=== PATIENT | female | born 1975 | race Asian ===

== ENCOUNTER 2020-05-18 14:55 | Outpatient (CLI) | payer BC, SELFPAY ==
--- NOTE | ~2020-05-18 | MM_ITS ---
EXAMINATION: MM screening lobo BI w chuy HISTORY: Screening mammogram TECHNIQUE: Craniocaudal and mediolateral oblique 3-D tomosynthesis images were obtained and synthetic 2-D images were generated. CAD analysis was submitted and interpreted. COMPARISON: 08/01/2016 BREAST PARENCHYMAL COMPOSITION: There are scattered areas of fibroglandular density. FINDINGS: There is no evidence of suspicious mass, calcification, or architectural distortion to sugg est malignancy in either breast. There has been no suspicious interval change. IMPRESSION: 1. No mammographic evidence of malignancy. 2. Recommend routine screening mammography in one year. BI-RADS Category 1: Negative Reviewed, dictated and finalized at location A.
== END 2020-05-18 14:56 | disposition home or self-care (01) ==
LOC: ANHIMG 15:02
PROVIDERS: PCP Emergency Medicine; Visit Provider Emergency Medicine
DX: Z12.31 Encounter for screening mammogram for malignant neoplasm of breast (principal)
CPT/HCPCS: 77063; 77067

== ENCOUNTER 2020-05-30 07:55 | Outpatient (CLI) | payer BC, SELFPAY ==
--- NOTE | ~2020-05-30 | US_ITS ---
EXAMINATION: US abdomen complete DATE: 05/30/2020 08:42 INDICATION: Liver disease TECHNIQUE: Multiple grayscale and Doppler ultrasound images of the abdomen were obtained. COMPARISON: None available FINDINGS: The head and body of the pancreas are normal. The pancreatic tail is obscured by bowel gas. The liver is normal with normal echogenicity and echotexture. No surface nodularity. Normal hepatope aleja flow in the main portal vein. The gallbladder is normal with no abnormal wall thickening, pericho lecystic fluid or stones. The normal common bile duct measures 2 mm. There was no sonographic Swan sign. The visualized portions of the aorta and inferior vena cava are normal. The right kidney measures 11.1 x 3.9 x 4.2 cm. The left kidney measures 10.1 x 6.1 x 4.5 cm. The kidn eys demonstrate normal parenchymal echogenicity. There is no hydronephrosis. The spleen is normal in appearance and measures 8.2 cm. IMPRESSION: 1. No sonographic correlate for the patient's symptoms. Reviewed, dictated and finalized at location A.
== END 2020-05-30 07:56 | disposition home or self-care (01) ==
PROVIDERS: PCP Emergency Medicine; Visit Provider Emergency Medicine
DX: K76.9 Liver disease, unspecified (principal)
CPT/HCPCS: 76700

== ENCOUNTER 2021-02-17 13:20 | Outpatient (CLI) | payer OTHER, SELFPAY ==
--- NOTE | ~2021-02-17 | US_ITS ---
EXAMINATION: US pelvic complete w TV DATE: 02/17/2021 13:56 INDICATION: Pelvic pain TECHNIQUE: Multiple transabdominal and endovaginal sonographic images of the pelvis were obtained. COMPARISON: None. FINDINGS: The uterus measures 8.2 x 6.6 x 4.9 cm. The endometrial complex measures 7 mm. And IUD appe ars to be in expected position. The right ovary is not visualized however no right adnexal abnormalit y is seen. The left ovary measures 3.3 x 3.1 x 2.7 cm and contains a 2.6 cm cyst. There is normal vas cular flow in the left ovary. There is no free fluid in the pelvis. IMPRESSION: 1. No sonographic correlate for the patient's symptoms. Reviewed, dictated and finalized at location F. TIC PERFORMER
== END 2021-02-17 13:21 | disposition home or self-care (01) ==
LOC: ANHIMG 13:28
PROVIDERS: PCP Emergency Medicine; Visit Provider Emergency Medicine
DX: R10.2 Pelvic and perineal pain (principal)
CPT/HCPCS: 76830; 76856

== ENCOUNTER 2021-06-30 09:00 | Outpatient (CLI) | payer OTHER, SELFPAY ==
--- NOTE | ~2021-06-30 | MM_ITS ---
EXAMINATION: MM screening [facility] BI w chuy HISTORY: Screening TECHNIQUE: Craniocaudal and mediolateral oblique 3-D tomosynthesis images were obtained and synthetic 2-D images were generated. CAD analysis was submitted and interpreted. COMPARISON: Comparison to multiple prior studies sequentially, with oldest reviewed study dated 05/18. BREAST PARENCHYMAL COMPOSITION: Breast composed of scattered areas of fibroglandular density FINDINGS: There is no evidence of suspicious mass, calcification, or architectural distortion to sugg est malignancy in either breast. There has been no suspicious interval change. IMPRESSION: 1. No mammographic evidence of malignancy. 2. Recommend routine screening mammography in one year. BI-RADS Category 1: Negative Reviewed, dictated and finalized at location A.
== END 2021-06-30 09:01 | disposition home or self-care (01) ==
LOC: ANHIMG 09:04
PROVIDERS: PCP Emergency Medicine; Visit Provider Emergency Medicine
DX: Z12.31 Encounter for screening mammogram for malignant neoplasm of breast (principal)
CPT/HCPCS: 77063; 77067

== ENCOUNTER 2022-11-07 01:21 | Day surgery (SDC) | payer OTHER, SELFPAY ==
[2022-10-28 16:21] VITALS: BMI 26.5
[2022-11-07] MEDS: LACTATED RINGERS 1,000 ML 150 ML IV CONT (09:40)
[2022-11-07 09:43] VITALS: BP 157/94; PULSE 65; RESP 18; TEMP 36.3; O2SAT 100
--- NOTE | 2022-11-07 09:44 | SUR.PREOP ---
[facility] chain person Bushra #[id number] utilized to get patient ready for procedure.
--- NOTE | 2022-11-07 10:34 | WPDANESEPPF ---
Anes - Initial Pre Proc Eval Procedure: Operation Date: 11/07/22 11:00 Proposed Procedures p Screening Colonoscopy - Tyson Schofield MD Date/Time: 11/07/22 10:34 Surgeon: Tyson Schofield MD Pre Op Diagnosis: neoplasm screening Patient Data Age: 46 Gender: F Height: 1.6 m Weight: 65.8 kg Last Vital Signs Temp 97.4 F L 11/07/22 09:43 Pulse 65 11/07/22 09:43 Resp 18 11/07/22 09:43 BP 157/94 H 11/07/22 09:43 Pulse Ox 100 11/07/22 09:43 O2 Del Method Room Air 11/07/22 09:43 Allergies Allergy/AdvReac Type Severity Reaction Status Date / Time No Known Allergies Allergy Mild Unverified 11/07/22 09:36 Home Medications Medication Instructions Recorded Confirmed Type amlodipine 5 mg tablet 5 mg PO DAILY 11/07/22 11/07/22 History Patient hx anesthesia problems: none Family hx anesthesia problems: none Results Review: All pre-operative results and documents have been reviewed as part of the pre-operative evaluation. [facility] Social History Social History Smoking status: Never smoker Substance use: never Substance use type: does not use Living arrangements: with family Spiritual care concerns: No Anes - Eval Final PreProcedure Day of Procedure 11/07/22 10:34 Patient weight: normal Heart: regular rate and rhythm Lungs: clear to auscultation Airway: Mallampati scale class II Neurological: alert and oriented Last oral intake: >/= 8 hours ASA classification: II Emergent: no Anesthetic plan: proceed Anesthesia type and monitoring: general GIVS and standard monitoring Results Review: All pre-operative results and documents have been reviewed as part of the pre-operative evaluation. Informed Consent: The patient's anesthetic plan and its attendant risks and benefits were discussed with the patient/family/POA. Questions were solicited and answers provided to the satisfaction of the patient/family/POA.
--- NOTE | 2022-11-07 10:42 | P.HP_ITS ---
History of Present Illness History of Present Illness Consent: Risks, benefits, and alternatives have been discussed and questions answered. Patient agrees to proceed with procedure. Chief complaint: neoplasm screening Narrative: Maricruz Peter is a 46 year old female here for first screening colonoscopy Review of Systems Constitutional: Constitutional: Denies headache(s) and Denies weakness Eyes: Eyes: Denies blurry vision ENT: Reports Normal hearing present, Denies headache(s) and Denies neck pain Cardiovascular: Cardiovascular: Denies chest pain and Denies dyspnea Respiratory: Respiratory: Denies dyspnea Gastrointestinal: Gastrointestinal: Reports no additional gastrointestinal complaints Genitourinary: Genitourinary: Denies dysuria Musculoskeletal: Musculoskeletal: Denies neck pain Integumentary/Breasts: Skin/Breast: Denies dry skin Neurologic: Reports Normal hearing present, Denies headache(s) and Denies w eakness Psychiatric: Psychiatric: Denies anxiety Endocrine: Endocrine: Denies change in body appearance Hematologic/Lymphatic: Hematologic/Lymphatic: Denies easy bleeding Allergic/Immunologic: Allergic/Immunologic: Denies urticaria PMFSH Past Medical History Medical History (Updated 11/07/22 @ 10:43 by Tyson Schofield MD) Colon cancer screening Social History Social History Smoking status: Never smoker Substance use: never Substance use type: does not use Living arrangements: with family Spiritual care concerns: No Meds Home Medications and Allergies Home Medications Medication Instructions Recorded Confirmed Type amlodipine 5 mg tablet 5 mg PO DAILY 11/07/22 11/07/22 History Allergies Allergy/AdvReac Type Severity Reaction Status Date / Time No Known Allergies Allergy Mild Unverified 11/07/22 09:36 Vital Signs Vital Signs - 24 hr 11/07/22 09:43 Temperature 97.4 F L Pulse Rate 65 Respiratory Rate 18 Blood Pressure 157/94 H Pulse Oximetry 100 Oxygen Delivery Room Air Exam Const: General: comfortable and no acute distress HENMT: Face/Nose/Sinus: Normal nares present Eyes: General: appearance normal, both eyes and all related structures Neck: Neck: no JVD Resp: Auscultation: clear to auscultation bilaterally Cardio: Rate: regular rate Rhythm: regular rhythm GI: Inspection: non-distended GI Palp: Yes Soft to palpation Skin: General skin exam: normal color Neuro: General: gait normal Speech: normal speech Extrem: General: normal to inspection Psych: Mental Status: mental status grossly normal Assessment and Plan Assessment and plan (1) Colon cancer screening: Code(s): Z12.11 - Encounter for screening for malignant neoplasm of colon Status: Acute Assessment and Plan: colonoscopy
[2022-11-07 11:03] VITALS: BP 108/74; PULSE 69; RESP 22; O2SAT 97
[2022-11-07 11:13] VITALS: BP 139/96; PULSE 56; RESP 18; O2SAT 100
[2022-11-07 11:23] VITALS: BP 156/98; PULSE 61; RESP 20; O2SAT 100
--- NOTE | 2022-11-07 11:27 | SUR.PHASEII ---
Post op instructions and results reviewed via goldsmith apprentice(Mandarin) post operatively. All questions answered.
== END 2022-11-07 11:44 | disposition home or self-care (01) ==
PROVIDERS: PCP Emergency Medicine; Visit Provider Internal Medicine Gastroenterology
PROC: 0DJD8ZZ Inspection of Lower Intestinal Tract, Via Natural or Artificial Opening Endoscopic (ICD-10-PCS; CPT 45378; principal; 2022-11-07 11:00)
DX: Z12.11 Encounter for screening for malignant neoplasm of colon (principal)
CPT/HCPCS: 45378; J2001; J2704; J7120

== ENCOUNTER 2023-01-16 14:55 | Outpatient (CLI) | payer OTHER, SELFPAY ==
--- NOTE | ~2023-01-16 | MM_ITS ---
EXAMINATION: MM screening lobo BI w chuy HISTORY: Screening mammogram TECHNIQUE: Craniocaudal and mediolateral oblique 3-D tomosynthesis images were obtained and synthetic 2-D images were generated. CAD analysis was submitted and interpreted. COMPARISON: 06/30/2021, 05/18/2020, 08/01/2016 bilateral screening mammogram examinations BREAST PARENCHYMAL COMPOSITION: There are scattered areas of fibroglandular density. FINDINGS: There is no evidence of suspicious mass, calcification, or architectural distortion to sugg est malignancy in either breast. There has been no suspicious interval change. IMPRESSION: 1. No mammographic evidence of malignancy. 2. Recommend routine screening mammography in one year. BI-RADS Category 1: Negative Reviewed, dictated and finalized at location A. OR MAKER
== END 2023-01-16 14:56 | disposition home or self-care (01) ==
LOC: ANHIMG 14:58
PROVIDERS: PCP Emergency Medicine; Visit Provider Emergency Medicine
DX: Z12.31 Encounter for screening mammogram for malignant neoplasm of breast (principal)
CPT/HCPCS: 77063; 77067

== ENCOUNTER 2024-04-08 14:04 | Outpatient (CLI) | payer OTHER, SELFPAY ==
--- NOTE | ~2024-04-08 | DEXA_ITS ---
Bone Density Report Name: YASMANY BLACK Age: 48 Sex: Female Ethnicity: White Date of : 1975 Indication: postmenopausal; height loss; Referring Provider: TIMOTHY COURTNEY Study: Bone densitometry was performed. Exam Date: April 08, 2024 Accession number: [id number] Bone Density: Region BMD T-score Z-score Classification AP Spine(L1-L4) 0.881 -1.5 -0.9 Osteopenia Femoral Neck (Left) 0.720 -1.2 -0.5 Osteopenia Total Hip (Left) 0.966 0.2 0.6 Normal Femoral Neck (Right) 0.778 -0.6 0.0 Normal Total Hip (Right) 0.917 -0.2 0.2 Normal Total Hip Mean 0.942 0.0 0.4 Normal World Health Organization criteria for BMD impression classify patients as: Normal (T-score at or above -1.0), Osteopenia (T-score between -1.0 and -2.5), or Osteoporosis (T-score at or below -2.5). 10-year Fracture Risk(1): Major Osteoporotic Fracture 3.7% Hip Fracture 0.2% Reported Risk Factors: [place] (), Neck BMD=0.720, BMI=26.3 (1) FRAX(R) Version 3.08. Fracture probability calculated for an untreated patient. Fracture probability may be lower if the patient has received treatment. Clinical Information Provided by Patient: Patient maximum height was 63 Does not regularly consume dairy products Drinks caffeinated beverages Onset of menses at age 12 Number of children 3 Missed period for more than 6 months in a row Impression: The patient has low bone mass, based on the Total Spine T-score. The patient has an estimated ten-year risk of hip fracture of 0.2% and an estimated ten-year risk of major fracture of 3.7%, based on the WHO FRAX algorithm. Discussion: BONE DENSITY IS LOW AT ONE OR MORE SKELETAL SITES. This patient's lowest T-score is low at one or more skeletal sites. It meets the World Health Organization's (WHO) criteria for ?low bone mass? (T-score between -1.0 and -2.5). The patient's 10-year risk of fracture as calculated by FRAX is less than the threshold where pharmacological therapy is recommended by the National Osteoporosis Foundation (NOF). However, all treatment decisions require clinical judgment and consideration of individual patient factors, including patient preferences, comorbidities, previous drug use, risk factors not captured in the FRAX model (e.g., frailty, falls, vitamin D deficiency, increased bone turnover, interval significant decline in bone density) and possible under or overestimation of fracture risk by FRAX. The patient should follow a healthful lifestyle (good nutrition with adequate calcium and vitamin D, and appropriate weight-bearing exercise). Follow-Up: Consider repeating this study in 2 to 3 years to reassess this patient's status, or sooner if there is some new clinical indication. Reported by: KRISTINE on 04/08/2024 3:15:00 PM. Reviewed, dictated and finalized at location A. [facility]
--- OUTSIDE RECORDS SUMMARY | 2024-04-08 16:43 | XMS_ITS | Continuity of Care Document ---
Author Organization [facility] Address [id number] Phone Care Team Providers Care Marketing Liaison Name Role Phone Unavailable Unavailable Unavailable Allergies, Adverse Reactions, Alerts Substance Reaction Status Criticality BLOOD SUGAR DIAGNOSTIC Active No In formation BLOOD-GLUCOSE METER Active No Infor mation WARNIN allergy(ies) could not be collected because the type is not supported. Please contact the source practice for further details. Medications Medication Instructions Dosage Effective Dates (start - stop) Status Comments Benzonatate 100 mg Cap - Act chace Alesse-28 0.1 mg-20 mcg Tab - Active Advance Directives Directive Yes / No Effective Date File Name No Information Encounters Encounter Description Practice Location Reason(s) For Visit Diagnoses Date Provider Providers Copied on Encounter [facility], [address], , [id number], [place] tel:[phone] Noteworthy Legacy [facility] Laboratory examinationLabo ratory examinationAcut e upper respiratory infections of unspecified sitePain in jointRoutine follow-upOther general counseling and advice on contraceptive management 201 1 No Information Family History Family Member Type Diagnosis Age At Onset No Information Immunizations Vaccine Date Status Comments H1N1 INFLUENZA A (SWINE FLU) VACCINE PF 0.5 mL INJECTION administered Source: Sour ce Unspecified Payers Payer name Insurance type Covered libertarian ID Authoriza tion(s) No Information Social History Type Description Quantity Date Captured Comments Sex Female Smoking Status No Information Vital Signs Date / Time: Height Weight BMI Pulse Rate Blood Pressure Temperature Respiratory Rate Body Surface Area Head Circumference Head Circ. Percentile Wt./Jey. Percentile BMI percentile Pulse Ox Inhaled Ox 10:01 AM 139.70 cm 62.100 kg 31.8 0 kg/m eter (2) 138/100 mm[Hg] 10:29 AM 69.100 kg 84 /min 158/109 mm[Hg] 98.30 F 18 /min Chief Complaint And Reason For Visit No Information Reason For Referral Reason For Referral No Information History Of Present Illness Encounter Date Complaint History Of Prese nt Illness No Information Functional Status Date Functional Assessmen t No Information Instructions Date Instruction Additional Infor mation No Information Assessments Type Assessment Date No Information Patient Care Teams Name Effective Dates (start - stop) Status Members No Information
--- OUTSIDE RECORDS SUMMARY | 2024-04-08 16:44 | XMS_ITS | Referral Summary ---
Author Organization [facility] Address [address] [place] [address] Care Team Providers Care Handyperson Name Role Phone Saul Andrew MD Primary Care Provider [phone] Source Comments [facility]non-owned Affiliates and Associated Physician Practices is amultiple site organization consisting of ambulatory clinics and hospital sitesin [place], [place], [place] and [place]. This disclosure is being madepursuant to the Care Everywhere program and may not contain all information available regarding this patient. Last updated 11/10/17.[employer] [facility] Allergies No known active allergies Medications * Be aware that medications may not be up to date on this document. Alwaysverify current medications with the patient. Medication Sig Dispensed Refills Start Date End Date Status irbesartan-hydroCHLORO thiazide (AVALIDE) 150-12.5 MG tablet Take 1 tablet by mouth once daily Active Active Problems Problem Noted Date Diagnosed Date Hepatitis B virus infection 05/03/2021 Overview (11/13/2021): 11/12/21 Fibroscan CAP 307, LSM 6.8 kPa Social History Tobacco Use Types Packs/Day Years Used Date Smoking Tobacco: Never Smokeless Tobacco: Never Alcohol Use Standard Drinks/Week Comments Never 0 (1 standard drink = 0.6 oz pur e alcohol) Sex and Gender Information Value Date Recorded Sex Assigned at Not on file Gender Identity Not on file Sexual Orientation Not on file Last Filed Vital Signs Vital Sign Reading Time Taken Comments Blood Pressure 174/106 11/12/2021 10:41 AM CDT Pulse 65 11/12/2021 10:41 AM CDT Temperature 36.6 C (97.8 F) 11/12/2021 10:41 AM CDT Respiratory Rate 18 11/12/2021 10:41 AM CDT Oxygen Saturation 100% 11/12/2021 10:41 AM CDT Inhaled Oxygen Concentration - - Weight 65.8 kg (145 lb) 11/12/2021 10:41 AM CDT Height 157.5 cm (5' 2 ) 05/03/2021 1:39 PM CDT Body Mass Index 26.52 05/03/2021 1:39 PM CDT Plan of Treatment Not on file Goals Goal Patient Goal Type Associated Problems Recent Progress Patient-Stated? Author Medication Management General On track( 022 10:49 AM CDT) No Ilene Ram RN Note: Expected end date: Ongoing Interventions: Take all medications as prescribed Let your doctor know right away about any changes in your medications Make sure to request a refill of your medication at least one week prior to your last dose Procedures Procedure Name Priority Date/Time Associated Diagnosis Comments COMPREHENSIVE METABOLIC PANEL Routine 05/03/2021 3:03 PM CDT Liver problem HEPATITIS C ANTIBODY Routine 05/03/2021 3:03 PM CDT Liver problem from Last 3 Months or Most Recently Relevant to Health Maintenance Results * (ABNORMAL) COMPREHENSIVE METABOLIC PANEL (05/03/2021 3:03 PM CDT) BUN 8 7 - 26 mg/dL 05/03/2021 3:48 PM T [facility] Creatinine 0.65 0.56 - 0.96 mg/dL 05/03/2021 3:48 PM T [facility] Sodium 140 136 - 145 mmol/L 05/03/2021 3:48 PM T [facility] Potassium 3.1(L) 3.5 - 4.5 mmol/L 05/03/2021 3:48 PM [facility] Chloride 99 98 - 107 mmol/L 05/03/2021 3:48 PM T [facility] CO2 29 22 - 29 mmol/L 05/03/2021 3:48 PM T [facility] Glucose 98 70 - 115 mg/dL 05/03/2021 3:48 PM [facility] Calcium 9.7 8.4 - 10.2 mg/dL 05/03/2021 3:48 PM [facility] Protein Total 8.8(H) 6.0 - 8.3 g/dL 05/03/2021 3:48 PM [facility] Albumin 4.4 3.4 - 5.0 g/dL 05/03/2021 3:48 PM [facility] Bilirubin Total 0.7 0.2 - 1.2 mg/dL 05/03/2021 3:48 PM [facility] Alkaline Phosphatase 99 40 - 150 U/L 05/03/2021 3:48 PM [facility] ALT 27 5 - 55 U/L 05/03/2021 3:48 PM [facility] AST 20 5 - 34 U/L 05/03/2021 3:48 PM [facility] Anion Gap 15 8 - 18 05/03/2021 3:48 PM [facility] BUN/Creatinine Ratio 12 7 - 23 05/03/2021 3:48 PM [facility] Osmolality Calculated 288 270 - 300 mOsm/kg 05/03/2021 3:48 PM [facility] Albumin/Globulin Ratio 1.0(L) 1.1 - 2.3 05/03/2021 3:48 PM [facility] eGFR by CKD-EPI >90 >=90 mL/min/1.7 3 m2 05/03/2021 3:48 PM [facility] Blood BLOOD SPECIMEN / Unknown Lab Venipuncture / Unknown 05/03/2021 3:03 PM CDT 05/03/2021 3:17 PM CDT Ivette Gray [facility] - CHEMI STRY ORDERABLES [facility] [address] [place] [id number], [facility] [phone] * HEPATITIS C ANTIBODY (05/03/2021 3:03 PM CDT) Hepatitis C Antibody Non-react chace Non-reac tive 05/03/2021 4:15 PM CDT [facility] Comment:Hepatitis C Antibody screen indicates no serologic evidence of past or current infection with Hepatitis C Virus. Patients with unexplained liver disease who are immunocompromised or suspected of having acute Hepatitis C infection may benefit from Nucleic Acid Test (XUAN) for Hepatitis C Viral RNA to confirm Hepatitis C status. Blood BLOOD SPECIMEN / Unknown Lab Venipuncture / Unknown 05/03/2021 3:03 PM CDT 05/03/2021 3:15 PM CDT Ivette Gray [facility] - CHEMI STRY ORDERABLES [facility] [address] [place] [address], [facility] [phone] from Last 3 Months or Most Recently Relevant to Health Maintenance Care Teams Handyperson Relationship Specialty Start Date End Date Saul Andrew MD [address] [place] [address] PCP - General 01/03/22
--- OUTSIDE RECORDS SUMMARY | 2024-04-08 16:44 | XMS_ITS | Data Portability ---
Author Organization [facility] [place] Address [address] [place] [place] [address] Assessment Encounter Date Assessment Date Assessment LastModified by Organization Details LastModified Time 06/25/2021 06/25/2021 Annual gynecological exam performed. Patient will come back in a year unless there are new symptoms. Not available 06/25/2021 10:20:51 Plan of Treatment Reminders Order Date Submit Date Provider Last Modified By Organization Details Last Modified Time Details Appointments None recorded. Lab test, [facility] [place], [address], [address], [place], [address], 10:58:59 Referral gastroenter ologist referral - Referring this patient for a Screening Colonoscopy *Please call this patient to set up an appointment *Attached to this referral are the patients demographic s and most recent office visit note.If you have any questions or require further information , please contact me at [phone].Thank you,Chanell, Referral's 2021 022 [facility], [address], [id number], [place], [address], 3 05:01:34 Procedures None recorded. Surgeries None recorded. Imaging None recorded. Medication Orders None recorded. Patient TargetsNo targets recorded. Patient InstructionsNo instructions recorded. 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 for malignant neoplasm of colon Screening Colonoscopy Referring this patient for a Screening Colonoscopy*Please call this patient to set up an appointment*Attached to this referral are the patients demographics and most recent office visit note.If you have any questions or require further information, please contact me at [phone].Thank you,Chanell, Referral's Referring Physician: Yvonne Mar, CHANNEL DIRECTOR, Encounter Date: 06/25/2021 Results Created Date Observation Date Name Description Value Unit Range Abnormal Flag Note LastModifiedBy Organization Detail LastModifiedTime 06/26/19 22 06/25/2021 IMAGE GUIDE D PAP AND HPV REGAR DLESS image guided Pap, HPV regardless of Pap result SEE RESULT S BELOW CASE REPOR T: Cytol ogy Gynec ologi ceci Repor t Case: [id number] 20 Autho bc wyatt Provi orquidea: Adrian Michelle Colle cted: 06/25 1338 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 Cindy moreira evonne d by Maureen Ordaz ret, CT on 2021 at 12:42 PM ----- ----- ----- ----- ----- ----- ----- ----- ----- ----- ----- ----- ----- ----- ----- ----- ----- ---- HPV RESUL TS: HPV mRNA E6/E7 : No HPV mRNA Detec roby NOTE: This high risk HPV mRNA assay detec ts fourt een high- risk HPV types (16, 18, 31, 33, 35, 39, 45, 51, 52, 56, 58, 59, 66, 68) witho ut diffe renti ation . COMME NT: Note: This speci men was revie wed by a Cytot echno logis t and/o r Patho logis t (as indic ated in this repor t) after evalu ation using the Thinp rep Imagi ng Syste m. CLINI CECI INFOR MATIO N: Menst rual Statu s: LMP (if appli cable ): Clini ceci Histo ry/Pr eviou s Pap: Type of Neopl desiree (if appli cable ): Signi fican t Clini ceci Findi ngs: Other Histo ry: Hormo marcelina (if appli cable ): PAP EDUCA SAMARA L NOTE: The Pap Test is a scree alexander test with an inher ent false negat chace rate. Liqui d-bas ed sampl ing may decre ase, but will not elimi cally, false negat chace resul ts. A negat chace resul t does not precl ude the prese nce and/o r devel opmen t of disea se, since the prese nce of abnor mal cells in the sampl e depen ds on the locat ion of the lesio n and sampl ing techn ique. Joce nued regul ar scree alexander is the best metho d of cance r preve ntion . If repor roby cytol ogic findi ng do not corre late with physi ceci and/o r histo rical findi ngs, furth er inves tigat ion is recom omid d, as clini sandra ruiz nted. Not Available [facility] (Lab) [address], [place], [address], 07/02/2021 13:44:44 06/26/19 22 06/25/2021 pregn huseyin test, urine HCG negati ve Not Available [place] [address], [place], [address], 06/25/2021 10:57:27 Result Notes None recorded. Problems Name Problem SNOMED Code Status Onset Date Resolution Date Notes Provider Name and Address Organization Details Recorded Time Pregnanc y test positive 480770093 Completed 201006/24/2021 examinati on or test, positive result;Re corded Elsewhere : No Locati on: [facility] So urce: EHR Chron ic: N Practic e ID: 0001 Bill able Time: 01:00:00 PM Sonia amor [facility] 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 2 16:17:47 Postpart um care Completed 201106/24/2021 Routine postpartu m follow-up ;Recorded Elsewhere : No Locati on: [facility] So urce: EHR Chron ic: N Practic e ID: 0001 Bill able Time: 12:00:00 PM Sonia Infante [facility] 2 16:17:47 Pregnanc y test negative [id number] Completed 201106/24/2021 examinati on or test, negative result;Re corded Elsewhere : No Locati on: [facility] So urce: EHR Chron ic: N Practic e ID: 0001 Bill able Time: 10:30:00 AM Sonia [facility]ante [facility] [address] 16:17:[address] Concept Completed 201706/24/2021 Encntr for general adult medical exam w/o abnormal findings; Recorded Elsewhere : No Locati on: [facility] So urce: EHR Chron ic: N Practic e ID: 0001 Bill able Time: 01:00:00 PM Sonia amor [facility] 2 16:17:47 Screenin g for malignan t neoplasm of rectum Completed 201606/24/2021 Encounter for screening for malignant neoplasm of rectum;Re corded Elsewhere : No Locati on: [facility] So urce: EHR Chron ic: N Practic e ID: 0001 Bill able Time: 09:45:00 AM Sonia amor [facility] 2 16:17:47 Speciali zed medical examinat ion Completed 201006/24/2021 Routine gynecolog ical examinati on;Practi ce ID: 0001 Sonia amor [facility] 2 16:17:47 Screenin g for malignan t neoplasm of cervix Completed 201006/24/2021 Pap Smear;Pra ctice ID: 0001 Sonia amor [facility] 2 16:17:47 Multigra angelina of advanced maternal age [id number] Completed 201006/24/2021 Other advanced maternal age, antepartu m condition or complicat ion;Pract ice ID: 0001 Sonia amor [facility] 2 16:17:47 Routine antenata l care Completed 201006/24/2021 Supervisi on of other normal ;Practice ID: 0001 Sonia amor [facility] 2 16:17:47 Acute upper respirat ory infectio n [id number] Completed 201006/24/2021 Acute upper respirato ry infection s of unspecifi ed site;Prac christo ID: 0001 Sonia amor [facility] 2 16:17:47 Twin pregnanc y with antenata l problem [id number] Completed 201006/24/2021 Twin , antepartu m condition or complicat ion;Pract ice ID: 0001 Sonia amor [facility] 2 16:17:47 Poor growth affectin g manageme nt [id number] Completed 201106/24/2021 GROWTH POOR SGA;Pract ice ID: 0001 Sonia Infante [facility] 2 16:17:47 Twin pregnanc y - delivere d [id number] Completed 201106/24/2021 Twin , delivered ;Practice ID: 0001 Sonia Infante [facility] 2 16:17:47 Twins - both live born [id number] Completed 201106/24/2021 Mother with twins, both liveborn; Practice ID: 0001 Sonia Infante [facility] 2 16:17:47 Benign essentia l hyperten christopher complica ting pregnanc y, childbir th and the puerperi um - delivere d with postnata l complica tion [id number] Completed 201106/24/2021 Postpartu m benign essential hypertens ion;Pract ice ID: 0001 Sonia Infante [facility] 2 16:17:47 Insertio n of intraute rine contrace ptive device Completed 201106/24/2021 INSERTION OF IUD;Pract ice ID: 0001 Soniajoselito Infante [facility] 2 16:17:47 Uses IUD (intraut erine device) contrace ption [id number] Completed 201106/24/2021 Surveilla nce of intrauter ine contracep tive device;Pr actice ID: 0001 Sonia Infante [facility] 2 16:17:47 Problem Notes None recorded. Procedures Surgical History Date Name Laterality Status Provider Name and Address Organization Details Recorded Time 2 IUD Removal completed LYLY Anaya- [address], [place], [address], [facility] 06/25/2021 10:56:09 Imaging Results None recorded. Procedure Notes None recorded. Medical Equipment None Reported. Allergies No known drug allergies Medications Name Sig Start Date Stop Date Status Note LastModified by Organization Details LastModified Time labetalol 200 mg tablet take 1 tablet (200MG) by oral route 2 times every day 07/10 completed Prescribe d Elsewhere : No Locati on: [facility] Mo gaily By: laura Encounte r DateTime: 2 02:30:00 PM Not Available Not Available Not Available Norvasc 10 mg tablet take 1 tablet (10MG) by oral route every day 07/10 completed Prescribe d Elsewhere : No Locati on: [facility] Mo dify By: laura Encounte r DateTime: 2 02:30:00 PM Not Available Not Available Not Available irbesarta n 150 mg-hydroc hlorothia zide 12.5 mg tablet 06/25 completed Not Available Not Available Not Available azithromy deshaun 250 mg tablet 06/25 completed Not Available Not Available Not Available amlodipin e 5 mg tablet 06/25 completed Not Available Not Available Not Available codeine 10 mg-guaife nesin 100 mg/5 mL oral liquid 06/25 completed Not Available Not Available Not Available Vitals Date Recorded Body height Body mass index (BMI) Body weight Systolic blood pressure Diastolic blood pressure Provider Name and Address Organization Details Last Updated DateTime 06/25/2021 157.48 cm 26.6 kg/m2 92293.69 g 126 mm[Hg] 70 mm[Hg] Sonia Infante [facility] 10:22:06 Social History Question Answer Notes LastModified by Organizat ion Details LastModified Time Tobacco Smoking Status Never Smoker Sonia Infante [facility], [facility] 06/24/2021 17:32:07 What Is Your Level Of Alcohol Consumption? None Information not available 06/24/2021 Are You Blind Or Do You Have Difficulty Seeing? No Information not available 06/24/2021 What Is Your Level Of Caffeine Consumption? None Information not available 06/24/2021 Are You Deaf Or Do You Have Serious Difficulty Hearing? No Information not available 06/24/2021 What Type Of Diet Are You Following? REGULAR Information not available 06/24/2021 Do You Use Your Seat Belt Or Car Seat Routinely? Yes Information not available 06/24/2021 Do You Have Smoke And Carbon Monoxide Detectors In Your Home? Yes Information not available 06/24/2021 Do You Feel Stressed (tense, Restless, Nervous, Or Anxious, Or Unable To Sleep At Night)? [id number] Information not available 06/24/2021 Do You Use Any Illicit Or Recreational Drugs? No Information not available 06/24/2021 Do You Use Sunscreen Routinely? Yes Information not available 06/24/2021 Sex: Unknown Functional Status Question Answer Note LastModified by Organizat ion Details LastModified Time Do you have difficulty walking or climbing stairs? No Information not available 06/24/2021 Are you able to walk? YESWOREST Information not available 06/24/2021 Are you able to care for yourself? Yes Information not available 06/24/2021 Do you have difficulty dressing or bathing? No Information not available 06/24/2021 What is your exercise level? Moderate Information not available 06/24/2021 Mental Status None recorded. Family History Nothing Reported Notes:Mother: No history of Cancer, cervical Medical History No medical history recorded. Gynecological History Statement/Question Response Abnormal Pap N Sexually Active? N STIs/STDs N HPV Vaccine N Date of Last Pap Smear Sexual Problems? N Current Control Method LMP Unknown Obstetrics History GPAL:G 4 P 0 0 0 4 Type Value Living 4 Total 4 Past Encounters Encounter ID Performer Location Encounter Start Date Encounter Closed Date Diagnosis/Indication Diagnosis SNOMED-CT Code Diagnosis ICD10 Code Diagnosis Note [id number] Yvonne Mar [facility] [address] [address] 06/25/2021 09:46:37 06/25/2021 11:03:35 Gynecologic examination 57898553 Z01.419 Suggested Calcium with Vitamin D 1200-1500m g daily. Patient advised to get an annual flu shot in the fall and she could obtain at [facility] or [facility]. Also to obtain TDap vaccinatio n if you have not had one in the last 10 years. Recommend yearly mammograms . Encouraged monthly self breast exams. Encourage safe sexual practices, to use condoms and limit partners if not already in a monogamous relationsh ip. Engage in daily exercise of low impact aerobic exercise 45-60 minutes 4-5 times weekly. Avoid tobacco and illicit drugs as well as using moderation with alcohol intake less than 1-2 8 oz beverages daily. This lifestyle behavior pattern will lead to less health conditions and longer life span. If BMI greater than 25 weight watchers or dietary consult advised. All questions have been answered. Patient appears to understand informatio n, but if you have any questions please call or respond to this email. Pap/hpv sent STD Screen declined Genetic Screen discussed Colon Screen ordered Dexa Screen na Routine Labs declinedMa mmo ordered Removal of intrauterine device [id number] Z30.432 It was explained that she may have bleeding or spotting after the removal of the device today as well. If cannot see the strings of this device we will need to get an US image to make that the device is still in place and not in an unobtainab le position. She expressed understand ing of all the above instructio ns. Patient declined blood work todayVerba lized that once this device is removed she needs to use condoms or abstain if is not a goal for her. There was a language barrier but we reviewed this multiple times and understand ing verbalized at the end. Screening for malignant neoplasm of colon 814343856 Z12.11 Health Concerns Section Related Observation LastModified by Organization Detai ls LastModified Time None Recorded Concern Status LastModified by Organization Details LastModified Time None Recorded Advance Directives Directive None Recorded Payers Encounter Date Sequence Insurance Name Policy Number Policy Downey Covered Member ID Downey Member ID Guarantor Name 06/25/2021 1 [facility] - DOS ON OR AFTER 20 (MEDICAID REPLACEMENT - HMO) Maricruz Peter [id number] Maricruz Peter Notes Date Note Type Note Provider Name and Address Organization Details Recorded Time 06/25/2021 text/html Annual GYNReport ed bypatient.Menstrua l cycle:Normal menses (Light menses with paraguard IUD) Urinary symptoms:No hematuria; No incontinence Vulva:No genital lesion Vagina:Normal vaginal discharge Breast:No breast pain; No breast lump; No nipple discharge Sexual complaints:No sexual complaints; No pain during intercourse; Normal libido Menopausal Symptoms:No menopausal symptoms; Normal vaginal lubrication Psychological symptoms:No depression; No anxiety; No PMDD Preventive measures:Encourage self breast examination; Encourage regular exercise; Encourage no tobacco use; Encourage regular mammograms starting age 40; Followed with Q3 year pap smear and high risk HPV typing; Needs to schedule mammogram; Needs to schedule colonoscopy Yvonne Mar VERA- [address], [place], [address], [facility] 06/25/2021 11:00:54 OBGyn Episode Ob Episode Information Episode Created Date Number of Fetuses Patient Bloodtype Patient rh Status Prepregnancy Weight lbs Domestic Partner Domestic Partner Phone Father Name Faro Dealer Status 06/26/19 22 2 CLOSED Fetus Data First Name Last Name Admitted to NICU Weight (g) Sex Living Outcome Pediatric Complications Fetus ID Race Codes Race Delivery Type F [id number] Vaginal Delivery [id number] Vaginal Delivery Grant Calculation Initial Grant Date Initial Exam Date Initial Exam Provider Initial Ultrasound Date Last Menstrual Period Date Ultra Sound Weeks Gestation 0 Eighteen To Twenty Week Grant Update Ultra Sound Date Fundal Height At Umbil Quickening Date Ultra Sound Latest Weeks Gestation Final Grant Confirmed By Final Grant Confirmed Date Final Grant Date Ultra Sound Latest Days Gestation 0 0 Menstrual History Last Menstrual Date Menses Monthly On Bcp Conception Prior Menses Frequency Hcg Plus Date Menarche Onset Age Delivery Information Delivery Date Delivery Type Labor Anesthesia Weeks Gestation Incision Type Labor Labor Length Hrs Delivered By Post Complications Tubal Sterilization Discharge Date Comments 2 Discharge Information Feeding Method Contraceptive Method Maternal HG B and HCT Levels Ob Episode Information Episode Created Date Number of Fetuses Patient Bloodtype Patient rh Status Prepregnancy Weight lbs Domestic Partner Domestic Partner Phone Father Name Faro Dealer Status 06/26/19 22 1 CLOSED Fetus Data First Name Last Name Admitted to NICU Weight (g) Sex Living Outcome Pediatric Complications Fetus ID Race Codes Race Delivery Type M [id number] Vaginal Delivery Grant Calculation Initial Grant Date Initial Exam Date Initial Exam Provider Initial Ultrasound Date Last Menstrual Period Date Ultra Sound Weeks Gestation 0 Eighteen To Twenty Week Grant Update Ultra Sound Date Fundal Height At Umbil Quickening Date Ultra Sound Latest Weeks Gestation Final Grant Confirmed By Final Grant Confirmed Date Final Grant Date Ultra Sound Latest Days Gestation 0 0 Menstrual History Last Menstrual Date Menses Monthly On Bcp Conception Prior Menses Frequency Hcg Plus Date Menarche Onset Age Delivery Information Delivery Date Delivery Type Labor Anesthesia Weeks Gestation Incision Type Labor Labor Length Hrs Delivered By Post Complications Tubal Sterilization Discharge Date Comments 6 Discharge Information Feeding Method Contraceptive Method Maternal HG B and HCT Levels Ob Episode Information Episode Created Date Number of Fetuses Patient Bloodtype Patient rh Status Prepregnancy Weight lbs Domestic Partner Domestic Partner Phone Father Name Faro Dealer Status 06/26/19 22 1 CLOSED Fetus Data First Name Last Name Admitted to NICU Weight (g) Sex Living Outcome Pediatric Complications Fetus ID Race Codes Race Delivery Type F [id number] Vaginal Delivery Grant Calculation Initial Grant Date Initial Exam Date Initial Exam Provider Initial Ultrasound Date Last Menstrual Period Date Ultra Sound Weeks Gestation 0 Eighteen To Twenty Week Grant Update Ultra Sound Date Fundal Height At Umbil Quickening Date Ultra Sound Latest Weeks Gestation Final Grant Confirmed By Final Grant Confirmed Date Final Grant Date Ultra Sound Latest Days Gestation 0 0 Menstrual History Last Menstrual Date Menses Monthly On Bcp Conception Prior Menses Frequency Hcg Plus Date Menarche Onset Age Delivery Information Delivery Date Delivery Type Labor Anesthesia Weeks Gestation Incision Type Labor Labor Length Hrs Delivered By Post Complications Tubal Sterilization Discharge Date Comments 9 Discharge Information Feeding Method Contraceptive Method Maternal HG B and HCT Levels
--- OUTSIDE RECORDS SUMMARY | 2024-04-08 16:44 | XMS_ITS | Referral Summary ---
Author Organization [facility] [place] Address [address] [place] [address] Care Team Providers Care Extractor Operator Name Role Phone Rahat Yu MD Primary Care Provider [phone] Allergies No known active allergies Medications irbesartan-hydr ochlorothiazide (AVALIDE) 150-12.5 mg per tablet Take 1 tablet by mouth daily 2 Active HYDROcodone-lluvia taminophen (NORCO) 5-325 mg per tabletIndicatio ns:Pain Take 1-2 tablets by mouth every 6 (six) hours as needed for pain 30 tablet 2 Active Additional Information Patient not taking.Reported on 10/27/2021 HYDROcodone-lluvia taminophen (NORCO) 5-325 mg per tabletIndicatio ns:Pain Take 1-2 tablets by mouth every 6 (six) hours as needed for pain 25 tablet 2 Active Active Problems Problem Noted Date Diagnosed Date Left carpal tunnel syndrome 08/02/2021 Right carpal tunnel syndrome 08/02/2021 Hepatitis B virus infection 05/03/2021 Social History Tobacco Use Types Packs/Day Years Used Date Smoking Tobacco: Never Smokeless Tobacco: Never Tobacco Cessation:Counseling Given: Not Answered AUDIT-C Answer Date Recorded Q1: How often do you have a drink containing alc ohol? 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 Not on file Not on file Not on file Last Filed Vital Signs Vital Sign Reading Time Taken Comments Blood Pressure 150/97 11/04/2021 11:00 AM CDT Pulse 57 11/04/2021 11:00 AM CDT Temperature 36.4 C (97.5 F) 11/04/2021 10:45 AM CDT Respiratory Rate 16 11/04/2021 11:00 AM CDT Oxygen Saturation 100% 11/04/2021 11:00 AM CDT Inhaled Oxygen Concentration - - Weight 66.4 kg (146 lb 4.8 oz) 11/04/2021 8:24 A M CDT Height 160 cm (5' 3 ) 11/04/2021 8:24 AM CDT Body Mass Index 25.92 11/04/2021 8:24 AM CDT Plan of Treatment Not on file Insurance [facility] Care Teams Extractor Operator Relationship Specialty Start Date End Date Rahat Yu MD [address] [place] [address] PCP - General Family Medicine 07/08/21
--- OUTSIDE RECORDS SUMMARY | 2024-04-08 16:44 | XMS_ITS | Clinical Summary ---
Author Organization [facility] Address [address] [place] [address] Care Team Providers Care Enrolled Nurse Name Role Phone Saul Andrew MD Primary Care Provider [phone] Source Comments [facility],non-owned Affiliates and Associated Physician Practices is amultiple site organization consisting of ambulatory clinics and hospital sitesin [place], [place], [place] and [place]. This disclosure is being madepursuant to the Care Everywhere program and may not contain all information available regarding this patient. Last updated 17.[employer] [facility] Allergies No known active allergies Medications * [...] 05/03/2021 1:39 PM CDT Plan of Treatment Health Maintenance Due Date Last Done Comments COLOGUARD (AGES 45-75) - COL ON CA SCREENING 1975 COLON MONITORING 1975 COLONOSCOPY - COLON CA SCREENING 1975 CT COLONOGRAPHY - COLON CA SCREENING 1975 Colorectal Cancer Screening 1975 FIT - COLON CA SCREENING 1975 FLEX SIG - COLON CA SCREENING 1975 LIPID TESTING 1975 MAMMOGRAM 1975 HIV SCREENING 11/14/1990 DTAP/TDAP/TD VACCINES (1 - Tdap) 11/14/1994 HEPATITIS B VACCINE (1 of 3 - 19+ 3-dose series) 11/14/1994 COVID-19 VACCINE (1 - 2023-2 5 season) 2023 INFLUENZA VACCINE (#1) 2023 DEPRESSION SCREENING 02/21/2024 SCREENING FOR DIABETES 05/03/2024 05/03/2021 PAP SMEAR 06/25/2024 06/25/2021 ZOSTER VACCINE (1 of 2) 11/14/2025 HEPATITIS C SCREENING Completed 05/03/2021 HIB VACCINE Aged Out No longer eligi ble based on patient's age to complete this topic HPV VACCINE Aged Out No longer eligi ble based on patient's age to complete this topic MENINGOCOCCAL (Group B) VACCINE Aged Out No longer eligible based on patient's age to complete this topic MENINGOCOCCAL VACCINE Aged Out No patricia divya eligible based on patient's age to complete this topic PNEUMOCOCCAL VACCINE Aged Out No long er eligible based on patient's age to complete this topic Goals Goal Patient Goal Type Associated Problems Recent Progress Patient-Stated? Author Medication Management General On track( 022 10:49 AM CDT) No Ilene Ram, RN Note: Expected end date: Ongoing Interventions: [...] 7 - 26 mg/dL 05/03/2021 3:48 PM [facility] Creatinine 0.65 0.56 - 0.96 mg/dL 05/03/2021 3:48 PM [facility] Sodium 140 136 - 145 mmol/L 05/03/2021 3:48 PM [facility] Potassium 3.1(L) 3.5 - 4.5 mmol/L 05/03/2021 3:[address] [facility] Chloride 99 98 - 107 mmol/L 05/03/2021 3:48 PM [facility] CO2 29 22 - 29 mmol/L 05/03/2021 3:48 PM [facility] Glucose 98 70 - 115 mg/dL 05/03/2021 3:48 PM [facility] Calcium 9.7 8.4 - 10.2 mg/dL 05/03/2021 3:48 PM [facility] Protein Total 8.8(H) 6.0 - 8.3 g/dL 05/03/2021 3:[address] [facility] Albumin 4.4 3.4 - 5.0 g/dL 05/03/2021 3:48 PM [facility] Bilirubin Total 0.7 0.2 - 1.2 mg/dL 05/03/2021 3:48 PM [facility] Alkaline Phosphatase 99 40 - 150 U/L 05/03/2021 3:[address] [facility] ALT 27 5 - 55 U/L 05/03/2021 3:48 PM CDT [facility] AST 20 5 - 34 U/L 05/03/2021 3:48 PM CDT [facility] Anion Gap 15 8 - 18 05/03/2021 3:48 PM CDT [facility] BUN/Creatinine Ratio 12 7 - 23 05/03/2021 3:48 PM CDT [facility] Osmolality Calculated 288 270 - 300 mOsm/kg 05/03/2021 3:48 PM CDT [facility] Albumin/Globulin Ratio 1.0(L) 1.1 - 2.3 05/03/2021 3:48 PM CDT [facility] eGFR by CKD-EPI >90 >=90 mL/min/1.7 3 m2 05/03/2021 3:48 PM CDT [facility] Blood BLOOD SPECIMEN / Unknown Lab Venipuncture / Unknown 05/03/2021 3:03 PM CDT 05/03/2021 3:17 PM CDT Ivette Gray INTERNET SALES CONSULTANT-ADVERTISING SALES AGENT LAB - CHEMI STRY ORDERABLES [address] [address], [facility] [phone] * HEPATITIS C ANTIBODY (05/03/2021 3:03 PM CDT) [facility] Hepatitis C Antibody Non-react chace Non-reac tive 05/03/2021 4:15 PM CDT [facility] Comment:Hepatitis C Antibody screen indicates no serologic [...] CDT 05/03/2021 3:15 PM CDT Ivette Gray INTERNET SALES CONSULTANT-ADVERTISING SALES AGENT LAB - CHEMI STRY ORDERABLES [address] [address] [phone] from Last 3 Months or Most Recently Relevant to Health Maintenance Care Teams Enrolled Nurse Relationship Specialty Start Date End Date Saul Andrew MD [address] [place] [address] PCP - General 01/03/22
--- OUTSIDE RECORDS SUMMARY | 2024-04-08 16:44 | XMS_ITS | Patient Health Summary ---
Author Organization [facility] true[x] Media Address [address] [place] [address] Care Team Providers Care Research Phlebotomist Name Role Phone Saul Andrew MD Primary Care Provider [phone] Note from [facility],non-owned Affiliates and Associated Physician Practices is amultiple site organization consisting of ambulatory clinics and hospital sitesin [place], [place], [place] and [place]. This disclosure is being madepursuant to the Care Everywhere program and may not contain all information available regarding this patient. Last updated 17.[facility] true[x] Media Allergies No known active allergies Medications * Be aware that medications may not be up to date on this document. Alwaysverify current medications with the patient. * irbesartan-hydroCHLOROthiazide (AVALIDE) 150-12.5 MG tablet Take 1 tablet by mouth once daily Active Problems Problem Noted Date Diagnosed Date Hepatitis B virus infection 05/03/2021 Social History [...] Mass Index 26.52 05/03/2021 1:39 PM CDT Procedures * TX LIVER ELASTOGRAPHY(Performed 11/12/2021) Performed for Hepatitis B infection without delta agent without hepatic coma, unspecified chronicity * US ABDOMEN LIMITED(Performed 11/12/2021) Performed for Hepatitis B infection without delta agent without hepatic coma, unspecified chronicity * TRANSFERRIN(Performed 05/03/2021) Performed for Liver problem * PT-INR [facility](Performed 05/03/2021) Performed for Liver problem * IRON BLOOD(Performed 05/03/2021) Performed for Liver problem * HEPATITIS C ANTIBODY(Performed 05/03/2021) Performed for Liver problem * HEPATITIS BE ANTIGEN(Performed 05/03/2021) Performed for Liver problem * HEPATITIS BE ANTIBODY(Performed 05/03/2021) Performed for Liver problem * HEPATITIS B SURFACE ANTIGEN W RFLX CONFIRMATION(Performed 05/03/2021) Performed for Liver problem * HEPATITIS B SURFACE ANTIBODY(Performed 05/03/2021) Performed for Liver problem * HEPATITIS B DNA QUANT(Performed 05/03/2021) Performed for Liver problem * HEPATITIS B CORE ANTIBODY TOTAL(Performed 05/03/2021) Performed for Liver problem * GGT(Performed 05/03/2021) Performed for Liver problem * FERRITIN(Performed 05/03/2021) Performed for Liver problem * JAYESH BLOOD SCREEN W/REFLEX TITER(Performed 05/03/2021) Performed for Liver problem * COMPREHENSIVE METABOLIC PANEL(Performed 05/03/2021) Performed for Liver problem * CBC W AUTO DIFFERENTIAL(Performed 05/03/2021) Performed for Liver problem Results * PROC FIBROSCAN (11/12/2021 11:23 AM CDT) Narrative Joel Michael MD - 11/12/2021 11:23 AM CDT Joel Michael MD 11/13/2021 10:17 AM Diagnosis: Hep B RN verified patient not , no implanted devices and NPO for prior 3 hours. Vital signs taken, procedure explained and consent signed. Date of Exam: 11/12/2021 Liver Stiffness: (LSM, kPa) median: 6.8 IQR (interquartile range): 1.8 IQR/Median% (ideally < 30%): 26% CAP (controlled attenuation parameter): 307 Technical Difficulty: None Ordering Provider: Lara Gray CNP Phone Fax Fibroscan interpretation: I have personally reviewed the Fibroscan report and associated tracings. The calculated Liver Stiffness Measurement (LSM, kPa) indicates that: The probability of advanced liver fibrosis is: low. The loss of ultrasound signal, (controlled attenuation parameter, CAP [dB/m]), indicates that the probability of hepatic steatosis is: high. Joel Michael MD The following criteria are used to indicate the probability of advanced (stage 3-4) fibrosis: < 7.0 kPa: low 7.0-8.9 kPa: low to moderate 9.0-14.9 kPa: moderate 15-20 kPa: high > 20 kPa: very high Liver stiffness > 20 kPa is also associated with a high probability of complications of portal hypertension including varices and ascites. Liver stiffness > 50 kPa is associated with a high risk of variceal bleeding. These interpretations are based on the following published data: Rory PJ, Megan M, Christen M, et al. Accuracy of FibroScan controlled attenuation parameter and liver stiffness measurement in assessing steatosis and fibrosis in patients with nonalcoholic fatty liver disease. Gastroenterology 2019;156:9827-3118. Deondre MS, Ct R, Van Lilianata ML, et al. Vibration-controlled transient elastography to assess fibrosis and steatosis in patients with nonalcoholic fatty liver disease. Clin Gastroenterol Hepatol 2019;17:156-163. Note: 1. Fibroscan cannot reliably identify earlier stages of fibrosis (ie distinguish F0 from F1 and F2) and thus a histologic stage cannot be predicted from the Fibroscan reading. 2. Assessing the likelihood of advanced fibrosis in patients with indeterminate liver stiffness measurement (LSM) by Fibroscan (e.g., 8-15 kPa) can be improved by also calculating the FIB4 score (Davyduke et al. Hepatology Communications 2019;3:9318-6619) or NAFLD Fibrosis score (Turner et al. Clinical Gastroenterology and Hepatology 2019;17:0999-3167. from routine clinical data. 3. Liver stiffness can be increased by factors other than fibrosis including passive congestion, infiltrative processes, active alcoholism, biliary obstruction and marked inflammation. The interpretation of the Fibroscan result provided above may not have taken such clinical factors into account. Disease etiology also influences Fibroscan cutoff values for fibrosis stages and the following cutoffs have been proposed (Checo et al, Clin Gastro Hepatol 2015; 13:27-36): Cutoffs for Stage 3 and Stage 4 fibrosis respectively: Hepatitis B: >9 and >11.7 kPa Hepatitis C: >9.5 and >12.5 kPa HCV-HIV: >11 and >14 kPa Cholestatic liver diseases: >10 and >17.9 kPa NAFLD/MARINELLI: >10 and >14 kPa CAP estimates of steatosis: normal <200 dB/m mild 200 to 250 dB/m moderate 250-290 dB/m substantial > 290 dB/m (Note that Fibroscan is not a quantitative measure of liver fat.) These criteria are estimates and may change as additional supporting data becomes available. [email or web address] behavioral medicine [email or web address] Ivette Salgado Gray RADIO MAINTAINER-BLOOD BANK TECHNICIAN PROCEDURE/M INOR SURGICAL ORDERABLES * US ABDOMEN LIMITED (11/12/2021 9:38 AM CDT) Anatomical Region Laterality Modality Abdomen Ultrasound 11/12/2021 9:45 AM CDT Impressions 11/12/2021 9:49 AM CDT IMPRESSION: Normal sonographic appearance of the liver. Otherwise normal right upper quadrant sonogram. > Interpreting Provider: MEIR FRANCISCO MD on 11/12/2021 9:49 AM Narrative 11/12/2021 9:49 AM CDT PROCEDURE: US ABDOMEN LIMITED, DATE/TIME OF EXAM: 11/12/2021 9:38 AM, LOCATION [facility] INDICATION: B19.10: Hepatitis B infection without delta agent without hepatic coma, unspecified chronicity ADDITIONAL CLINICAL INFORMATION: Ordering Provider Reason For Exam: HCC screen Technologist Note: Additional: COMPARISON: None. TECHNIQUE: Real-time ultrasound of the upper abdomen with DICOM image capture performed by cytogenetic technologist. FINDINGS: The liver is normal in echotexture and echogenicity. The hepatic contour is smooth. No solid hepatic observations are noted. The hepatic veins and main portal vein are patent with appropriate directional flow. No intrahepatic or extra hepatic biliary dilatation is identified. The gallbladder is normal. Imaged pancreas is within normal limits. Limited evaluation of the right kidney demonstrates a renal length of 10.5 cm. Renal echogenicity and echotexture are within normal limits. No hydronephrosis or nephrolithiasis is seen. The spleen measures 8.9 cm, within normal limits. No ascites is present. Procedure Note Meir Francisco MD - 11/12/2021 PROCEDURE: US ABDOMEN LIMITED, DATE/TIME OF EXAM: 11/12/2021 9:38 AM, LOCATION [facility] INDICATION: B19.10: Hepatitis B infection without delta agent without hepatic coma, unspecified chronicity ADDITIONAL CLINICAL INFORMATION: Ordering Provider Reason For Exam: HCC screen Technologist Note: Additional: COMPARISON: None. TECHNIQUE: Real-time ultrasound of the upper abdomen with DICOM image capture performed by cytogenetic technologist. FINDINGS: The liver is normal in echotexture and echogenicity. The hepatic contouris smooth. No solid hepatic observations are noted. The hepatic veins andmain portal vein are patent with appropriate directional flow. No intrahepatic or extra hepatic biliary dilatation is identified. The gallbladder is normal. Imaged pancreas is within normal limits. Limited evaluation of the right kidney demonstrates a renal length of10.5 cm. Renal echogenicity and echotexture are within normal limits. No hydronephrosis or nephrolithiasis is seen. The spleen measures 8.9 cm, within normal limits. No ascites is present. IMPRESSION: Normal sonographic appearance of the liver. Otherwise normal right upper quadrant sonogram. > Interpreting Provider: MEIR FRANCISCO MD on 11/12/2021 9:49 AM Ivette Gray RADIO MAINTAINER-BLOOD BANK TECHNICIAN US ORDERABL ES * PT-INR [facility] (05/03/2021 3:03 PM CDT) PT 12.5 12.1 - 14.8 Seconds 05/03/2021 3:35 PM CDT [facility] INR 0.9 See Comment 05/03/2021 3:35 PM CDT [facility] Comment:The suggested therap eutic range for standard coumadin (warfarin) therapy is an INR of 2.0-3.0. For high-risk patients (Mechanical Mitral Valve Prosthesis, etc.), the suggested prophylactic therapeutic range is an INR of 2.5-3.5. Blood BLOOD SPECIMEN / Unknown Lab Venipuncture / Unknown 05/03/2021 3:03 PM CDT 05/03/2021 3:15 PM CDT Ivette Gray RADIO MAINTAINER-BLOOD BANK TECHNICIAN LAB - COAGU LATION ORDERABLES [address] [id number] [place] [address], [facility] [phone] * HEPATITIS B DNA QUANT (05/03/2021 3:03 PM CDT) HBV Qnt by NAAT Interp Not Detected Not Detected 05/08/2021 3:25 AM CDT [facility] ([facility]) Comment: INTERPRETIVE INFORMATION: HBV by Quantitative NAAT Normal range for this assay is Not Detected . The quantitative range of this assay is 1.00-9.00 log IU/mL (10-1,000,000,000 IU/mL). An interpretation of Not Detected does not rule out the presence of inhibitors in the patient specimen or HBV DNA concentration below the level of detection of the test. Care should be taken when interpreting any single viral load determination. This assay should not be used for blood donor screening, associated re-entry protocols, or for screening Human Cell, Tissues and Cellular Tissue-Based Products (HCT/P). HBV Qnt by NAAT IU/mL Not Detected IU/mL 05/08/2021 3:25 AM CDT [facility] ([facility]) HBV Qnt by NAAT log IU/mL Not Detected log IU/mL 05/08/2021 3:25 AM CDT [employer] ([facility]) Comment: Performed by [facility], [address] [place] [id number] [email or web address], Savanah Saba MD, Lab. Director Blood BLOOD SPECIMEN / Unknown Lab Venipuncture / Unknown 05/03/2021 3:03 PM CDT 05/03/2021 3:15 PM CDT Ivette Gray RADIO MAINTAINER-BLOOD BANK TECHNICIAN LAB - CHEMI STRY ORDERABLES [facility]) [address] * JAYESH BLOOD SCREEN W/REFLEX TITER (05/03/2021 3:03 PM CDT) JAYESH IgG None Detected None Detected 05/05/2021 12:00 AM CDT [facility] [employer] ([facility]) Comment: If suspicion of connective tissue disease is strong and JAYESH EIA is negative, consider testing for JAYESH by IFA ([id number]). INTERPRETIVE INFORMATION: Anti-Nuclear Antibodies (JAYESH), IgG by BRI Antinuclear Antibodies (JAYESH), IgG by BRI: JAYESH specimens are screened using enzyme-linked immunosorbent assay (BRI) methodology. All BRI results reported as Detected are further tested by indirect fluorescent assay (IFA) using HEp-2 substrate with an IgG-specific conjugate. The JAYESH BRI screen is designed to detect antibodies against dsDNA, histones, SS-A (Ro), SS-B (La), Diane, Diane/FARM SUPERVISOR, Scl-70, Bety-1, centromeric proteins, other antigens extracted from the HEp-2 cell nucleus. JAYESH BRI assays have been reported to have lower sensitivities than JAYESH IFA for systemic autoimmune rheumatic diseases (SARD). Negative results do not necessarily rule out SARD. Performed By: [facility] [address] [place] [address] [employer]: Savanah Saba MD Blood BLOOD SPECIMEN / Unknown Lab Venipuncture / Unknown 05/03/2021 3:03 PM CDT 05/03/2021 3:15 PM CDT Ivette Gray RADIO MAINTAINER-BLOOD BANK TECHNICIAN LAB - CHEMI STRY ORDERABLES [facility] [facility]) [address] * HEPATITIS BE ANTIGEN (05/03/2021 3:03 PM CDT) [facility] Hepatitis Be Antigen Negative Negative 05/04/2021 7:34 PM CDT [facility] ([facility]) Comment: Performed by [facility], [address] [place] [address] [email or web address], Savanah Saba MD, Lab. Director Blood BLOOD SPECIMEN / Unknown Lab Venipuncture / Unknown 05/03/2021 3:03 PM CDT 05/03/2021 3:15 PM CDT Ivette Gray RADIO MAINTAINER-BLOOD BANK TECHNICIAN LAB - CHEMI STRY ORDERABLES [facility] ([facility]) [address] * TRANSFERRIN (05/03/2021 3:03 PM CDT) Pathologist [facility] Transferrin 314 174 - 382 mg/dL 05/03/2021 3:54 PM CDT [facility] Blood BLOOD SPECIMEN / Unknown Lab Venipuncture / Unknown 05/03/2021 3:03 PM CDT 05/03/2021 3:15 PM CDT Ivette Gray APRN-BLOOD BANK TECHNICIAN LAB - CHEMI STRY ORDERABLES [facility] [address] [place] [address], [facility] [phone] * (ABNORMAL) CBC WITH DIFFERENTIAL (05/03/2021 3:03 PM CDT) [facility] WBC 6.4 3.5 - 10.5 10 3/uL 05/03/2021 3:22 PM CDT [facility] RBC 5.32(H) 3.80 - 5.20 10 6/uL 05/03/2021 3:22 PM CDT [facility] Hemoglobin 15.9(H) 12.0 - 15.6 g/dL 05/03/2021 3:22 PM CDT [facility] Hematocrit 48.2(H) 35.0 - 45.0 % 05/03/2021 3:22 PM CDT [facility] MCV 90.6 80.7 - 98.3 fL 05/03/2021 3:22 PM CDT [facility] MCH 29.9 26.7 - 34.0 pg 05/03/2021 3:22 PM CDT [facility] MCHC 33.0 30.8 - 35.9 g/dL 05/03/2021 3:22 PM [facility] Platelet Count 281 150 - 400 10 3/uL 05/03/2021 3:22 PM [facility] RDW-SD 40.8 36.0 - 50.0 fL 05/03/2021 3:22 PM [facility] RDW-CV 12.4 11.2 - 14.8 % 05/03/2021 3:22 PM [facility] MPV 9.9 9.4 - 12.9 fL 05/03/2021 3:22 PM [facility] nRBC Absolute 0.00 0 10 3/uL 05/03/2021 3:22 PM [facility] nRBC Auto 0.0 0 /100 WBC 05/03/2021 3:22 PM [facility] Neutrophils % 80.9(H) 35.0 - 70.0 % 05/03/2021 3:22 PM [facility] Lymphocytes % 11.7(L) 20.0 - 43.0 % 05/03/2021 3:22 PM [facility] Monocytes % 5.1 5.0 - 13.0 % 05/03/2021 3:22 PM [facility] Eosinophils % 0.9 0.0 - 6.0 % 05/03/2021 3:22 PM [facility] Basophil % 0.8 0.0 - 2.0 % 05/03/2021 3:22 PM [facility] Neutrophils Absolute 5.2 1.6 - 7.0 10 3/uL 05/03/2021 3:22 PM [facility] Lymphocyte Absolute 0.8(L) 1.1 - 3.9 10 3/uL 05/03/2021 3:22 PM [facility] Monocytes Absolute 0.33 0.26 - 1.07 10 3/uL 05/03/2021 3:22 PM [facility] Eosinophils Absolute 0.06 0.00 - 0.47 10 3/uL 05/03/2021 3:22 PM [facility] Basophils Absolute 0.05 0.00 - 0.08 10 3/uL 05/03/2021 3:22 PM [facility] Immature Granulocytes % 0.6 0.0 - 1.0 % 05/03/2021 3:22 PM [facility] Immature Granulocytes Absolute 0.04 05/03/2021 3:22 PM [facility] Blood BLOOD SPECIMEN / Unknown Lab Venipuncture / Unknown 05/03/2021 3:03 PM CDT 05/03/2021 3:17 PM CDT Ivette Gray RADIO MAINTAINER-BLOOD BANK TECHNICIAN LAB - HEMAT OLOGY ORDERABLES [facility] [address] [place] [address], [facility] [phone] * (ABNORMAL) COMPREHENSIVE METABOLIC PANEL (05/03/2021 3:03 PM CDT) BUN 8 7 - 26 mg/dL 05/03/2021 3:48 PM [facility] Creatinine 0.65 0.56 - 0.96 mg/dL 05/03/2021 3:48 PM [facility] Sodium 140 136 - 145 mmol/L 05/03/2021 3:48 PM [facility] Potassium 3.1(L) 3.5 - 4.5 mmol/L 05/03/2021 3:48 PM [facility] Chloride 99 98 - 107 mmol/L 05/03/2021 3:48 PM [facility] CO2 29 22 - 29 mmol/L 05/03/2021 3:48 PM [facility] Glucose 98 70 - 115 mg/dL 05/03/2021 3:48 PM [facility] Calcium 9.7 8.4 - 10.2 mg/dL 05/03/2021 3:48 PM [facility] Protein Total 8.8(H) 6.0 - 8.3 g/dL 05/03/2021 3:48 PM [facility] Albumin 4.4 3.4 - 5.0 g/dL 05/03/2021 3:48 PM [facility] Bilirubin Total 0.7 0.2 - 1.2 mg/dL 05/03/2021 3:48 PM CDT [facility] Alkaline Phosphatase 99 40 - 150 U/L 05/03/2021 3:48 PM [facility] ALT 27 5 - 55 U/L 05/03/2021 3:48 PM [facility] AST 20 5 - 34 U/L 05/03/2021 3:48 PM T [facility] Anion Gap 15 8 - 18 05/03/2021 3:48 PM T [facility] BUN/Creatinine Ratio 12 7 - 23 05/03/2021 3:48 PM T [facility] Osmolality Calculated 288 270 - 300 mOsm/kg 05/03/2021 3:48 PM [facility] Albumin/Globulin Ratio 1.0(L) 1.1 - 2.3 05/03/2021 3:48 PM [facility] eGFR by CKD-EPI >90 >=90 mL/min/1.7 3 m2 05/03/2021 3:48 PM T [facility] Blood BLOOD SPECIMEN / Unknown Lab Venipuncture / Unknown 05/03/2021 3:03 PM CDT 05/03/2021 3:17 PM CDT Ivette Gray APRN-BLOOD BANK TECHNICIAN LAB - CHEMI STRY ORDERABLES [address] [address], [facility] [phone] * IRON BLOOD (05/03/2021 3:03 PM CDT) Iron 45 40 - 150 ug/dL 05/03/2021 3:54 PM CDT [facility] Blood BLOOD SPECIMEN / Unknown Lab Venipuncture / Unknown 05/03/2021 3:03 PM CDT 05/03/2021 3:15 PM CDT Ivette Gray RADIO MAINTAINER-BLOOD BANK TECHNICIAN LAB - CHEMI STRY ORDERABLES [address] [address], [facility] [phone] * (ABNORMAL) HEPATITIS BE ANTIBODY (05/03/2021 3:03 PM CDT) Hepatitis Be Antibody Positive( A) Negative 05/06/2021 11:54 PM CDT [facility] [employer] ([facility]) Comment: The anti-HBe is reactive, which is consistent with recent or remote hepatitis B infection. Anti-HBe can be present in a small proportion of chronic HBV infections, but its presence usually indicates resolution. If HBeAg is also positive, this may represent the transition between the appearance of anti-HBe and decline of HBeAg and retesting in a month may be useful. INTERPRETIVE INFORMATION: Hepatitis Be Antibody Testing performed at [facility] [employer] Methodology: Chemiluminescent Immunoassay Instrumentation: [employer] Liaison XL Performed by [facility] [employer], [address] [place] [address] [email or web address], Savanah Saba MD, Lab. Director Blood BLOOD SPECIMEN / Unknown Lab Venipuncture / Unknown 05/03/2021 3:03 PM CDT 05/03/2021 3:15 PM CDT Ivette Gray RADIO MAINTAINER-BLOOD BANK TECHNICIAN LAB - CHEMI STRY ORDERABLES [facility] [employer] [facility]) [address] * (ABNORMAL) HEPATITIS B SURFACE ANTIBODY (05/03/2021 3:03 PM CDT) Pathologist [facility] Hepatitis B Virus Surface Antibody Reactive( A) Non-react chace 05/03/2021 4:21 PM CDT [facility] Comment: > 12 mIU/mL Hepatitis B surface Antibody (HBsAb). Reactive for HBsAb - individual is considered immune to Hepatitis B Virus infection. Hepatitis B Surface Antibody Quantitative >1,000.0( H) <8.0 mIU/mL 05/03/2021 4:21 PM CDT [facility] Comment: Hepatitis B Surface Antibody Numeric Result Interpretation: Nonreactive: <8.0 mIU/mL Indeterminate: 8.0 - 12.0 mIU/mL Reactive: >12.0 mIU/mL Blood BLOOD SPECIMEN / Unknown Lab Venipuncture / Unknown 05/03/2021 3:03 PM CDT 05/03/2021 3:15 PM CDT Ivette Gray APRN-BLOOD BANK TECHNICIAN LAB - CHEMI STRY ORDERABLES Performing Organization Address City/[facility]/ZIP Co de Phone Number [address] [address], [place] [phone] * (ABNORMAL) HEPATITIS B CORE ANTIBODY (05/03/2021 3:03 PM CDT) Pathologist [facility] HBc Antibody Total Reactive(A ) Non-reacti ve 05/03/2021 5:32 PM CDT [facility] Blood BLOOD SPECIMEN / Unknown Lab Venipuncture / Unknown 05/03/2021 3:03 PM CDT 05/03/2021 3:15 PM CDT Ivette Gray APRN-BLOOD BANK TECHNICIAN LAB - CHEMI STRY ORDERABLES Performing Organization Address [facility]/ZIP Co de Phone Number [address] [address], [place] [phone] * HEPATITIS B SURFACE ANTIGEN W RFLX CONFIRMATION (05/03/2021 3:03 PM CDT) [facility] Hepatitis B Virus Surface Antigen Non-reacti ve Non-reacti ve 05/03/2021 4:15 PM CDT [facility] Blood BLOOD SPECIMEN / Unknown Lab Venipuncture / Unknown 05/03/2021 3:03 PM CDT 05/03/2021 3:15 PM CDT Ivette Gray APRN-BLOOD BANK TECHNICIAN LAB - CHEMI STRY ORDERABLES Performing Organization Address City/[facility]/ZIP Co de Phone Number [address] [address], [place] [phone] * GGT (05/03/2021 3:03 PM CDT) [facility] GGT 22 9 - 64 Units/L 05/03/2021 3:48 PM CDT [facility] Blood BLOOD SPECIMEN / Unknown Lab Venipuncture / Unknown 05/03/2021 3:03 PM CDT 05/03/2021 3:17 PM CDT Ivette Gray APRN-BLOOD BANK TECHNICIAN LAB - CHEMI STRY ORDERABLES [address] [address], [facility] [phone] * HEPATITIS C ANTIBODY (05/03/2021 3:03 PM CDT) [facility] Hepatitis C Antibody Non-react chace Non-reac tive 05/03/2021 4:15 PM CDT [facility] Comment:Hepatitis C Antibody screen indicates no serologic evidence of past or current infection with Hepatitis C Virus. Patients with unexplained liver disease who are immunocompromised or suspected of having acute Hepatitis C infection may benefit from Nucleic Acid Test (LILIANA) for Hepatitis C Viral RNA to confirm Hepatitis C status. Blood BLOOD SPECIMEN / Unknown Lab Venipuncture / Unknown 05/03/2021 3:03 PM CDT 05/03/2021 3:15 PM CDT Ivette Gray APRN-BLOOD BANK TECHNICIAN LAB - CHEMI STRY ORDERABLES Performing Organization Address City/[facility]/ZIP Co de Phone Number [address] [address], [place] [phone] * FERRITIN (05/03/2021 3:03 PM CDT) [facility] Ferritin 50 13 - 204 ng/mL 05/03/2021 4:15 PM CDT [facility] Blood BLOOD SPECIMEN / Unknown Lab Venipuncture / Unknown 05/03/2021 3:03 PM CDT 05/03/2021 3:15 PM CDT Ivette Gray APRN-BLOOD BANK TECHNICIAN LAB - CHEMI STRY ORDERABLES [address] [address], [place] [phone] Care Teams Research Phlebotomist Relationship Specialty Start Date End Date Saul Andrew MD [address] [place] [address] PCP - General 01/03/22
--- OUTSIDE RECORDS SUMMARY | 2024-04-08 16:44 | XMS_ITS | Clinical Summary ---
Author Organization [facility] Address [address] [place] [address] Care Team Providers Care Legal Practice Manager Name Role Phone Rahat Yu MD Primary Care Provider [phone] Allergies No known active allergies Medications irbesartan-hydr [...] syndrome 08/02/2021 Hepatitis B virus infection 05/03/2021 Surgical History Surgery Date Site/Laterality Comments CARPAL TUNNEL RELEASE 10/07/2021 Left LT. CTR CARPAL TUNNEL RELEASE 11/04/2021 Right RT.CTR Medical History Medical History Date Comments Hypertension Social History Tobacco Use Types Packs/Day Years [...] file Not on file Not on file Obstetrics History Last Filed Vital Signs Vital Sign Reading [...] 11/04/2021 8:24 AM CDT Plan of Treatment Health Maintenance Due Date Last Done Comments Breast Cancer Screening-Mammogram 1975 Cervical Cancer Screening 1975 Colon Cancer Screening-Colonoscopy 1975 Depression Screening 1975 Hepatitis C Screening 1975 Pneumococcal vaccine <65 (1 of 2 - PCV) 11/14/1981 DTaP/Tdap/Td Vaccine (1 - Tdap) 11/14/1986 Regular Well Visit/Exam 18-64 11/14/1993 Covid-19 Vaccine ( season) 2023 03/01/2021, 07/15/2020, 05/25/2020 Influenza Vaccine (#1) 2023 03/18/2019 Insurance [facility] Care Teams Legal Practice Manager Relationship Specialty Start Date End Date Rahat Yu MD [address] [facility] [place] [address] PCP - General Family Medicine 07/08/21
--- OUTSIDE RECORDS SUMMARY | 2024-04-08 16:44 | XMS_ITS | Clinical Summary ---
Author Organization [facility] Address [address] [place] [address] Care Team Providers Care Senior International Tax Manager Name Role Phone Unavailable Primary Care Provider Unavailabl e Social History Tobacco Use Types Packs/Day Years Used Date Smoking Tobacco: Never Assessed Comments Unknown Sex and Gender Information Value Date Recorded Sex Assigned at Not on file Legal Sex Female 7:38 PM CDT Gender Identity Not on file Sexual Orientation Not on file Plan of Treatment Health Maintenance Due Date Last Done Comments Cervical Cancer Screening Pa p Smear (Age 30 to 64) Every 3 Years 1975 Colorectal Cancer Screening Colonoscopy (10 Years) 1975 Annual Physical 11/14/1978 Hepatitis C 11/14/1993 DTaP, Tdap and Td Vaccines ( 1 - Tdap) 11/14/1994 Hepatitis B Vaccines (1 of 3 - 19+ 3-dose series) 11/14/1994 Cervical Cancer Screening Pa p with HPV Testing (Age 30 to 64) Every 5 Years 11/14/2005 Cervical Cancer Screening with HPV 11/14/2005 Mammogram Screening 2015 COVID-19 Vaccine (2023-2 5 season) 2023 Influenza Adult (#1) 2023 Meningococcal B Vaccine Aged Out No l onger eligible based on patient's age to complete this topic Meningococcal Vaccine Aged Out No patricia divya eligible based on patient's age to complete this topic Pneumococcal Vaccine: Pediat rics (0 to 5 Years) and At-Risk Patients (6 to 64 Years) Aged Out No longer eligible b ased on patient's age to complete this topic RSV Immunizations Under 20 Months Aged Out No longer eligible based on patient's age to complete this topic
== END 2024-04-08 14:05 | disposition home or self-care (01) ==
PROVIDERS: PCP Emergency Medicine; Visit Provider Emergency Medicine
DX: Z78.0 Asymptomatic menopausal state (principal); M85.88 Other specified disorders of bone density and structure, other site; M85.852 Other specified disorders of bone density and structure, left thigh
CPT/HCPCS: 77080

== ENCOUNTER 2024-06-10 08:04 | Outpatient (CLI) | payer OTHER, SELFPAY ==
--- NOTE | ~2024-06-10 | MM_ITS ---
EXAMINATION: MM screening lobo BI w chuy HISTORY: Screening TECHNIQUE: Craniocaudal and mediolateral oblique 3-D tomosynthesis images were obtained and synthetic 2-D images were generated. CAD analysis was submitted and interpreted. COMPARISON: 01/16/2023 and dating back to 08/01/2016 BREAST PARENCHYMAL COMPOSITION: The breasts are heterogeneously dense, which may obscure small masses . FINDINGS: Stable parenchymal pattern without suspicious microcalcifications, architectural distortion, discrete masses or significant asymmetry. IMPRESSION: 1. No mammographic evidence of malignancy. 2. Recommend routine screening mammography in one year. BI-RADS Category 1: Negative Reviewed, dictated and finalized at location A.
--- OUTSIDE RECORDS SUMMARY | 2024-06-10 08:30 | XMS_ITS | Referral Summary ---
Author Organization [facility] [place] Address [address] [place] [address] Care Team Providers Care Robotics Engineer Name Role Phone Rahat Yu MD Primary Care Provider [phone] Allergies No known active allergies Medications irbesartan-hydr [...] Plan of Treatment Not on file Insurance [facility] Care Teams Robotics Engineer Relationship Specialty Start Date End Date Rahat Yu MD [address] [place] [address] PCP - General Family Medicine 07/08/21
--- OUTSIDE RECORDS SUMMARY | 2024-06-10 08:30 | XMS_ITS | Clinical Summary ---
Author Organization [facility] Address [address] [place] [address] Care Team Providers Care Program Management Analyst Name Role Phone Unavailable Primary Care Provider [...] 2015 COVID-19 Vaccine (2023-2 5 season) 2023 Meningococcal B Vaccine Aged Out No l onger eligible based on patient's age to complete this topic Meningococcal Vaccine Aged Out No patricia divya eligible based on patient's age to complete this topic Pneumococcal Vaccine: Pediat rics (0 to 5 Years) and At-Risk Patients (6 to 49 Years) Aged Out No longer eligible b ased on patient's age to complete this topic RSV Immunizations Under 20 Months Aged Out No longer eligible based on patient's age to complete this topic
--- OUTSIDE RECORDS SUMMARY | 2024-06-10 08:30 | XMS_ITS | Clinical Summary ---
Author Organization [facility] [employer] Address [address] [place] [address] Care Team Providers Care Insulator Technician Name Role Phone Saul Andrew MD Primary Care Provider [phone] Source Comments [facility] [employer],non-owned Affiliates and Associated Physician Practices is amultiple site organization consisting of ambulatory clinics and hospital sitesin [place], [place], [place] and [place]. This disclosure is being madepursuant to the Care Everywhere program and may not contain all information available regarding this patient. Last updated [employer] Allergies No known active allergies Medications * Be aware that medications may not be up to date on this document. Alwaysverify current medications with the patient. 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 Gender Identity Not on file Sexual Orientation [...] - 19+ 3-dose series) 11/14/1994 COVID-19 VACCINE ( - 2023-2 5 season) 2023 DEPRESSION SCREENING 02/21/2024 SCREENING FOR DIABETES 05/03/2024 05/03/2021 PAP SMEAR 06/25/2024 06/25/2021 INFLUENZA VACCINE (Season Ended) 2024 ZOSTER VACCINE (1 of 2) 11/14/2025 HEPATITIS C SCREENING Completed 05/03/2021 HIB VACCINE Aged Out No longer eligi ble based on patient's age to complete this topic HPV VACCINE Aged Out No longer eligi ble based on patient's age to complete this topic MENINGOCOCCAL (Group B) VACC INE SHARED DECISION-MAKING Aged Out No longer eligibl e based on patient's age to complete this topic MENINGOCOCCAL GROUPS A/C/Y/W VACCINE Aged Out No longer eligible b ased [...] 7 - 26 mg/dL 05/03/2021 3:48 PM [facility] Creatinine 0.65 0.56 - 0.96 mg/dL 05/03/2021 3:48 PM [facility] Sodium 140 136 - 145 mmol/L 05/03/2021 3:48 PM [facility] Potassium 3.1(L) 3.5 - 4.5 mmol/L 05/03/2021 3:48 PM [facility] Chloride 99 98 - 107 mmol/L 05/03/2021 3:48 PM [facility] CO2 29 22 - 29 mmol/L 05/03/2021 3:48 PM [facility] Glucose 98 70 - 115 mg/dL 05/03/2021 3:48 PM [facility] Calcium 9.7 8.4 - 10.2 mg/dL 05/03/2021 3:48 PM [facility] Protein Total 8.8(H) 6.0 - 8.3 g/dL 05/03/2021 3:48 PM [facility] Albumin 4.4 3.4 - 5.0 g/dL 05/03/2021 3:48 PM [facility] Bilirubin Total 0.7 0.2 - 1.2 mg/dL 05/03/2021 3:48 PM [facility] Alkaline Phosphatase 99 40 - 150 U/L 05/03/2021 3:48 PM [facility] ALT 27 5 - 55 U/L 05/03/2021 3:48 PM [facility] AST 20 5 - 34 U/L 05/03/2021 3:48 PM [facility] Anion Gap 15 8 - 18 05/03/2021 3:48 PM [facility] BUN/Creatinine Ratio 12 7 - 23 05/03/2021 3:48 PM [facility] Osmolality Calculated 288 270 - 300 mOsm/kg 05/03/2021 3:48 PM [facility] Albumin/Globulin Ratio 1.0(L) 1.1 - 2.3 05/03/2021 3:48 PM [facility] eGFR by CKD-EPI >90 >=90 mL/min/1.7 3 m2 05/03/2021 3:48 PM [facility] Blood BLOOD SPECIMEN / Unknown Lab Venipuncture / Unknown 05/03/2021 3:03 PM CDT 05/03/2021 3:17 PM CDT Ivette Gray ASSISTANT STORE DIRECTOR-FEED PROJECT ENGINEER LAB - CHEMISTRY ORD ERABLES Final Result [facility] [address] [place] [address], [facility] [phone] * HEPATITIS C ANTIBODY (05/03/2021 3:03 PM CDT) Hepatitis C Antibody Non-react chace Non-reac tive 05/03/2021 4:15 PM [facility] Comment:Hepatitis C Antibody [...] 3:03 PM CDT 05/03/2021 3:15 PM CDT us Ivette Gray ASSISTANT STORE DIRECTOR-FEED PROJECT ENGINEER LAB - CHEMISTRY ORD ERABLES Final Result [facility] [address] [place] [address], [facility] [phone] from Last 3 Months or Most Recently Relevant to Health Maintenance Insurance Care Teams Insulator Technician Relationship Specialty Start Date End Date Saul Andrew MD [address] [place] [address] PCP - General 01/03/22
--- OUTSIDE RECORDS SUMMARY | 2024-06-10 08:30 | XMS_ITS | Continuity of Care Document ---
Author Organization [facility] Address [address] [place] [address] Phone Care Team Providers Care Ambulatory Nurse Name Role Phone Unavailable Unavailable Unavailable Allergies, [...] Diagnoses Date Provider Providers Copied on Encounter [facility], [address], [place], [place], [id number], [place] tel:[phone] Noteworthy [facility] [employer] Laboratory examinationLabo ratory examinationAcut [...]
--- OUTSIDE RECORDS SUMMARY | 2024-06-10 08:31 | XMS_ITS | Clinical Summary ---
Author Organization [facility] [place] Address [address] [place] [address] Care Team Providers Care Sanitation Associate Name Role Phone Rahat Yu MD Primary Care Provider [phone] Allergies No known active allergies Medications irbesartan-hydr [...] Depression Screening 1975 Hepatitis C Screening 1975 DTaP/Tdap/Td Vaccine (1 - Tdap) 11/14/1986 Regular Well Visit/Exam 18-64 11/14/1993 Pneumococcal vaccine <65 (1 of 2 - PCV) 11/14/1994 Covid-19 Vaccine ( - season) 2023 03/01/2021, 07/15/2020, 05/25/2020 Influenza Vaccine (#1) 2023 03/18/2019 Insurance [facility] Care Teams Sanitation Associate Relationship Specialty Start Date End Date Rahat Yu MD [address] [place] [address] PCP - General Family Medicine 07/08/21
== END 2024-06-10 08:05 | disposition home or self-care (01) ==
LOC: ANHIMG 08:07
PROVIDERS: PCP Emergency Medicine; Visit Provider Emergency Medicine
DX: Z12.31 Encounter for screening mammogram for malignant neoplasm of breast (principal)
CPT/HCPCS: 77063; 77067

== ENCOUNTER 2024-10-23 12:14 | Outpatient (CLI) | payer OTHER, SELFPAY ==
--- NOTE | ~2024-10-23 | XR_ITS ---
[id number] 10/23/2024 13:53 Indication: Left knee pain Procedure: 2 views left knee Comparison: No prior studies for comparison. Findings: There is moderate tricompartment osteoarthritis. No acute fracture, subluxation or dislocation. No significant joint effusion. There are loose bodies adjacent to the joint. Impression: 1: Moderate tricompartment osteoarthritis. Reviewed, dictated and finalized at location O. Impression: 1: Moderate tricompartment osteoarthritis.
--- NOTE | ~2024-10-23 | US_ITS ---
EXAMINATION:US venous doppler LE LT INDICATION:Left leg pain TECHNIQUE: Multiple grayscale, color flow and Doppler images of the left lower extremity deep venous systems were obtained and reviewed. COMPARISON:No prior studies for comparison. FINDINGS: The common femoral, superficial femoral and popliteal veins demonstrate normal respiratory variation, augmentation and compressibility. Color flow is also seen within the posterior tibial, peroneal, greater saphenous and profunda veins. IMPRESSION: 1: No lower extremity deep venous thrombosis. Reviewed, dictated and finalized at location O.
--- OUTSIDE RECORDS SUMMARY | 2024-10-23 13:39 | XMS_ITS | Clinical Summary ---
Author Organization [facility] [place] Address [address] [place] [address] Care Team Providers Care Game Breeding Farm Manager Name Role Phone Rahat Yu MD Primary Care Provider [phone] Allergies No known active allergies Medications irbesartan-hydr [...] A M CDT Height 160 cm (5' 3) 11/04/2021 8:24 AM CDT Body Mass Index [...] 2 - PCV) 11/14/1994 Covid-19 Vaccine ( season) 2023 03/01/2021, 07/15/2020, 05/25/2020 Influenza Vaccine (#1) 2024 03/18/2019 Insurance [facility] Care Teams Game Breeding Farm Manager Relationship Specialty Start Date End Date Rahat Yu MD [address] [place] [address] PCP - General Family Medicine 07/08/21
--- OUTSIDE RECORDS SUMMARY | 2024-10-23 13:39 | XMS_ITS | Clinical Summary ---
Author Organization [facility] [employer] Address [address] [place] [address] Care Team Providers Care Jointer Submarine Cable Name Role Phone Saul Andrew MD Primary Care Provider [phone] Source Comments [facility] [employer],non-owned Affiliates and Associated Physician Practices is amultiple site organization consisting of ambulatory clinics and hospital sitesin [place], [place], [place] and [place]. This disclosure is being madepursuant to the Care Everywhere program and may not contain all information available regarding this patient. 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 Gender Identity Not on file Sexual Orientation [...] 10:41 AM CDT Height 157.5 cm (5' 2) 05/03/2021 1:39 PM CDT Body Mass Index [...] FOR DIABETES 05/03/2024 05/03/2021 PAP SMEAR 06/25/2024 06/25/2021, 06/25/2021 INFLUENZA VACCINE (#1) 2024 ZOSTER VACCINE (1 of 2) 11/14/2025 HEPATITIS C SCREENING Completed 05/03/2021 HIB VACCINE Aged Out No longer eligi ble based on patient's age to complete this topic HPV VACCINE Aged Out No longer eligi ble based on patient's age to complete this topic MENINGOCOCCAL (Group B) VACCINE SHARED DECISION-MAKING Aged Out No longer eligible based on [...] General On track( 022 10:49 AM CDT) Ilene Cheng, RN Note: Expected end date: Ongoing Interventions: [...] 7 - 26 mg/dL 05/03/2021 3:48 PM [facility] Creatinine 0.65 0.56 - 0.96 mg/dL 05/03/2021 3:48 PM [facility] Sodium 140 136 - 145 mmol/L 05/03/2021 3:48 PM [facility] Potassium 3.1(L) 3.5 - 4.5 mmol/L 05/03/2021 3:48 PM [facility] Chloride 99 98 - 107 mmol/L 05/03/2021 3:48 PM [facility] CO2 29 22 - 29 mmol/L 05/03/2021 3:48 PM [facility] Glucose 98 70 - 115 mg/dL 05/03/2021 3:48 PM [facility] Calcium 9.7 8.4 - 10.2 mg/dL 05/03/2021 3:48 PM [facility] Protein Total 8.8(H) 6.0 - 8.3 g/dL 05/03/2021 3:48 PM [facility] Albumin 4.4 3.4 - 5.0 g/dL 05/03/2021 3:48 PM [facility] Bilirubin Total 0.7 0.2 - 1.2 mg/dL 05/03/2021 3:48 PM [facility] Alkaline Phosphatase 99 40 - 150 U/L 05/03/2021 3:48 PM [facility] ALT 27 5 - 55 U/L 05/03/2021 3:48 PM [facility] AST 20 5 - 34 U/L 05/03/2021 3:48 PM [facility] Anion Gap 15 8 - 18 05/03/2021 3:48 PM [facility] BUN/Creatinine Ratio 12 7 - 23 05/03/2021 3:48 PM [facility] Osmolality Calculated 288 270 - 300 mOsm/kg 05/03/2021 3:48 PM [facility] Albumin/Globulin Ratio 1.0(L) 1.1 - 2.3 05/03/2021 3:48 PM [facility] eGFR by CKD-EPI >90 >=90 mL/min/1.7 3 m2 05/03/2021 3:48 PM [facility] Blood BLOOD SPECIMEN / Unknown Lab Venipuncture / Unknown 05/03/2021 3:03 PM CDT 05/03/2021 3:17 PM CDT Ivette Gray MICROBIOLOGY LAB MANAGER-DIRECTOR OF APPLICATION DEVELOPMENT LAB - CHEMISTRY ORD ERABLES Final Result [facility] [address] [place] [address], [facility] [phone] * HEPATITIS C ANTIBODY (05/03/2021 3:03 PM CDT) Hepatitis C Antibody Non-react chace Non-reac tive 05/03/2021 4:15 PM [facility] Comment:Hepatitis C Antibody screen indicates no [...] CDT 05/03/2021 3:15 PM CDT Ivette Gray MICROBIOLOGY LAB MANAGER-DIRECTOR OF APPLICATION DEVELOPMENT LAB - CHEMISTRY ORD ERABLES Final Result [facility] [address] [place] [address], [facility] [phone] from Last 3 Months or Most Recently Relevant to Health Maintenance Insurance Care Teams Jointer Submarine Cable Relationship Specialty Start Date End Date Saul Andrew MD [address] [place] [address] PCP - General 01/03/22
--- OUTSIDE RECORDS SUMMARY | 2024-10-23 13:39 | XMS_ITS | Clinical Summary ---
Author Organization [facility] Address [address] [place] [address] Care Team Providers Care Sneller Hand Name Role Phone Unavailable Primary Care Provider [...] Screening 2015 COVID-19 Vaccine (2023-2 5 season) 2024 Meningococcal B Vaccine Aged Out No l [...]
== END 2024-10-23 12:15 | disposition home or self-care (01) ==
PROVIDERS: PCP Emergency Medicine; Visit Provider Emergency Medicine
DX: M17.12 Unilateral primary osteoarthritis, left knee (principal)
CPT/HCPCS: 73560; 93971